=== PATIENT | female | born 1975 | race Caucasian/White ===

== ENCOUNTER 2018-05-16 14:43 | Outpatient (CLI) ==
[2015-12-18 20:51] VITALS: BMI 21.2
--- NOTE | 2018-05-17 10:07 | DI ---
Exam: Chest two-view HISTORY: Cough. Comparison: 09/10/2014. FINDINGS: Two views of the chest demonstrate hyper expanded lungs with no evidence of pneumothorax o r edema. There is a new appearance of minimal opacity in the left lung base. The heart is normal in s ize and configuration. The thoracic aorta is partially calcified. Calcified granulomata are noted. The pulmonary vasculature is not congested. The skeletal structures are intact. There are degenerati ve findings in the spine. IMPRESSION: Minimal atelectasis or pneumonia in the left lung base. Hyperexpanded lungs consistent with excellent inspiratory effort versus COPD. Atherosclerosis.
== END 2018-05-16 14:44 | disposition home or self-care (01) ==
LOC: RAD 14:43
PROVIDERS: ATTEND Physician Assistant
DX: R05 Cough (principal)

== ENCOUNTER 2020-08-29 14:32 | Observation (INO) ==
[2020-08-29] MEDS ORDERED: XANAX PO STA (14:33)
[2020-08-29 14:46] LABS: BASOPHILS % (AUTO) 0.3 % (0.0-3.0); EOSINOPHILS % (AUTO) 0.4 % (0.0-7.0); HEMATOCRIT 40.6 % (37.0-47.0); IMMATURE GRANULOCYTE % (AUTO) 0.1 % (0.0-5.0); LYMPHOCYTES # (AUTO) 1.1 K/uL (0.60-3.4); LYMPHOCYTES % (AUTO) 16.8 (10.0-50.0); MEAN CORPUSCULAR HEMOGLOBIN 32.6 pg (27.0-31.0); MEAN CORPUSCULAR HGB CONC 34.5 (31.8-35.4); MEAN CORPUSCULAR VOLUME 94.4 fl (81.0-99.0); MONOCYTES # (AUTO) 0.4 K/uL (0.4-2.0); MONOCYTES % (AUTO) 5.9 (0-10); NEUTROPHILS # (AUTO) 5.1 K/ul (2.0-6.9); NEUTROPHILS % (AUTO) 76.5 % (42.2-75.2); PLATELET COUNT 144 10^3/uL (140-440); RDW COEFFICIENT OF VARIATION 13.3 % (11.6-14.8); WHITE BLOOD COUNT 6.73 K/ul (4.6-10.2)
[2020-08-29 14:59] LABS: ALBUMIN 3.93 g/dL (3.5-5.0); ALKALINE PHOSPHATASE 109.4 U/L (38-126); BILIRUBIN,TOTAL 0.48 mg/dL (0.2-1.3); BLOOD UREA NITROGEN 3.3 mg/dL (7-17); CALCIUM 9.25 mg/dL (8.4-10.2); CARBON DIOXIDE 22.6 mmol/L (22-30.0); CHLORIDE 104.4 mmol/L (98-107); CREATINE KINASE 129.3 U/L (30-135); CREATININE 0.67 mg/dL (0.60-1.30); GLUCOSE 136.1 mg/dL (74-106); MAGNESIUM 1.76 mg/dL (1.6-2.3); SODIUM 135.6 mmol/L (134.5-145); TOTAL PROTEIN 7.04 g/dL (6.3-8.2)
[2020-08-29 15:00] LABS: BILIRUBIN,URINE 1+ (NEGATIVE); CLARITY,URINE Cloudy (CLEAR); COLOR,URINE Yellow (YELLOW); GLUCOSE, URINE (UA) Negative (NEGATIVE); KETONES,URINE 2+ (NEGATIVE); LEUKOCYTE ESTERASE ,URINE Negative (NEGATIVE); NITRITE,URINE Negative (NEGATIVE); PROTEIN,URINE 2+ (NEGATIVE); URINE, BLOOD Trace-intact (NEGATIVE); UROBILINOGEN,URINE 0.2 (0.2)
[2020-08-29] MEDS ORDERED: ATIVAN 1 ML ONE (15:00)
[2020-08-29] MEDS ORDERED: DEPACON IV STA (15:00)
[2020-08-29] MEDS ORDERED: SODIUM CHLORIDE IV STA (15:00)
[2020-08-29] MEDS ORDERED: ATIVAN IVP STA (15:00)
[2020-08-29 15:04] LABS: AMORPHOUS SEDIMENT,UR 3+ (NOT PRESENT); BACTERIA,URINE 2+ (NOT PRESENT); SQUAMOUS EPITHELIAL CELL,UR 30-50 (0-5)
[2020-08-29 15:08] LABS: POTASSIUM 2.69 mmol/L (3.5-5.1)
[2020-08-29] MEDS ORDERED: POTASSIUM CHLORIDE 10 MEQ/100 ML PREMIX 10 MEQ/100 ML BAG IV STA ×3 (15:08→15:10)
[2020-08-29 15:14] LABS: CREATINE KINASE MB 0.734 ng/ml (0.0-2.38)
--- NOTE | 2020-08-29 15:15 | CT ---
Exam: Head CT. Date: 08/29/2020. Comparison: None. HISTORY: Seizure. TECHNIQUE: Helical scan of the brain was performed. FINDINGS: The calvarium is intact. The paranasal sinuses and mastoid air cells are clear. There is mild diffuse cerebral and cerebellar volume loss with decreased attenuation in the periventr icular white matter. No abnormal intra or extra-axial fluid, mass or mass effect is present. There is no midline shift or hydrocephalus. No large vessel infarct or hemorrhage is observed. Laurent-white interface is maintained. Impression: No acute intracranial findings. There are involutional changes in the cerebral hemisphe res, greater than expected for the patient's age. All CT scans are performed using dose optimization techniques as appropriate to the performed exam an d include at least one of the following: Automated exposure control, adjustment of the mA and/or kV according t o size, and the use of iterative reconstruction technique.
[2020-08-29 15:18] LABS: TROPONIN I < 0.012 ng/ml (0.0000-0.120)
[2020-08-29 15:22] LABS: AMPHETAMINE SCREEN,URINE NEGATIVE (NEGATIVE); BARBITURATE SCREEN,URINE NEGATIVE (NEGATIVE); BENZODIAZEPINES SCREEN,URINE POSITIVE (NEGATIVE); CANNABINOID SCREEN,URINE NEGATIVE (NEGATIVE); COCAIN SCREEN,URINE NEGATIVE (NEGATIVE); METHADONE URINE SCREEN NEGATIVE (NEGATIVE); METHAMPHETAMINES SCREEN,URINE NEGATIVE (NEGATIVE); OPIATE SCREEN,URINE NEGATIVE (NEGATIVE); OXYCODONE URINE SCREEN NEGATIVE (NEGATIVE); PHENCYCLIDINE SCREEN,URINE NEGATIVE (NEGATIVE); PROPOXYPHENE URINE SCREEN NEGATIVE (NEGATIVE); TRICYCLIC ANTIDEPRESSANTS URIN NEGATIVE (NEGATIVE)
--- NOTE | 2020-08-29 17:00 | ED.PDOC ---
General ED Provider: Dr. JAMIE MOON Chief Complaint: Seizure Stated Complaint: dominique been out of my xanax for 2 days--i had a seizure at home Time Seen by Physician: 16:56 Exam Limitations: No limitations Primary Care Provider: EPIFANIO SHERMAN Nursing and Triage Documentation Reviewed and Agree: Yes Does patient meet sepsis criteria?: No System Inflammatory Response Syndrome: Not Applicable Sepsis Protocol: For patient's 13 years and over: Temp is 96.8 and below OR 101 and greater Pulse >90 BPM Resp >20/minute Acutely Altered Mental Status Are patient's symptoms suggestive of a new infection, such as: -Pneumonia -Skin, Soft Tissue -Endocarditis -UTI -Bone, Joint Infection -Implantable Device -Acute Abdominal Infection -Wound Infection -Meningitis -Blood Stream Catheter Infection -Unknown Neurological Complaint Exam Seizure Complaint/Exam Onset/Duration: secs Symptoms Are: Resolved Timing: Constant Single or Multiple Episode: single Failed to Regain Consciousness: No Severity: Self-limited Location: All extremities Character: Generalized Aggravating: Reports Drug withdrawal Alleviating: Reports Medication Related History: Reports Similar episode Carotid Bruit Present: No Cephalohematoma Present: No Tongue Bitten: Yes Neck Pain Present: No Glascow Coma Scale (see protocol): 15 Nystagmus Present: No Gag Reflex Present: Yes Speech: Present Normal Findings Aphasia: Present None Meningeal Signs Positive: No Focal Weakness: Present None Focal Sensory Loss: Reports None Gait: Normal [id number]: Normal Findings Pronator Drift: Present None Romberg Test Positive: No Babinski Sign: Negative Right and Negative Left Heel to Toe Normal: Yes Signs of Injury: Present Normal findings Differential Diagnoses: Seizure Disorder Review of Systems Review Of Systems Constitutional: Reports No symptoms Eyes: Reports No symptoms Ears, Nose, Mouth, Throat: Reports No symptoms Respiratory: Reports No symptoms Cardiac: Reports No symptoms GI: Reports No symptoms : Reports No symptoms Musculoskeletal: Reports No symptoms Skin: Reports No symptoms Neurological: Reports No symptoms Endocrine: Reports No symptoms Hematologic/Lymphatic: Reports No symptoms All Other Systems: Reviewed and Negative [facility] Social History Smoking and tobacco status: Current every day smoker Substance use type: marijuana Female Reproductive History Menstrual Hx Hysterectomy: Yes Hx Tubal Ligation: No Physical Exam Physical Exam Appearance: Reports Well-appearing Ill-appearing: None Pain Distress: None Eyes: Reports PETR, EOMI and Conjunctiva clear ENT: Reports Ears normal Neck: Supple Respiratory: Reports Airway patent, Breath sounds clear, Breath sounds equal and Breath sounds diminished Cardiovascular: Reports RRR, Pulses normal, No rub and No murmur GI/: Reports Soft, Nontender, No masses and Bowel sounds normal Musculoskeletal: Reports Normal strength, ROM intact, No edema and No calf tenderness Skin: Reports Warm, Dry and Normal color Neurological: Reports Sensation intact, Motor intact, Reflexes intact, Cranial nerves intact, Alert and Oriented Psychiatric: Reports Affect appropriate and Mood appropriate Interpretation Radiology Interpretation Radiology Interpretation By: Radiologist Radiology Results: Negative Exam Interpreted: CT Scan EKG Interpretation Time of EKG #1: 15:13 Rate: Normal Rhythm: Sinus Ectopy: None [place]: NL ST Segment: Normal Interpretation: nsr Re-Evaluation Re-Evaluation Time of Re-Evaluation: 18:22 Status: Improved Vital Signs Stable: Yes Pain Level: no pain Appearance: NAD Lungs: Clear Skin: Warm and Dry Neuro: Alert and Oriented X3 CV: RRR Critical Care Note Critical Care Note Total Critical Care Time (mins): 30 Course Course Hematology/Chemistry: 08/29/20 14:45 08/29/20 14:45 Orders, Labs, Meds: Lab Review 08/29/20 08/29/20 08/29/20 14:45 14:45 14:45 WBC 6.73 RBC 4.30 Hgb 14.0 Hct 40.6 MCV 94.4 MCH 32.6 H MCHC 34.5 RDW Coeff of [place]esta 13.3 Plt Count 144 Immature Gran % (Auto) 0.1 Neut % (Auto) 76.5 H Lymph % (Auto) 16.8 Perkins % (Auto) 5.9 Eos % (Auto) 0.4 Baso % (Auto) 0.3 Neut # (Auto) 5.1 Lymph # (Auto) 1.1 Perkins # (Auto) 0.4 Eos # (Auto) 0.0 Baso # (Auto) 0.0 Immature Gran # (Auto) 0.0 Sodium 135.6 Potassium 2.69 L* Chloride 104.4 Carbon Dioxide 22.6 Anion Gap 11.29 BUN 3.3 L Creatinine 0.67 Estimated GFR (MDRD) 94.00 BUN/Creatinine Ratio 4.92 Glucose 136.1 H Calcium 9.25 Magnesium 1.76 Total Bilirubin 0.48 AST 40.0 H ALT 22.0 Alkaline Phosphatase 109.4 Total Creatine Kinase 129.3 CK-MB (CK-2) 0.734 CK-MB (CK-2) % 0.5600 Troponin I < 0.012 Total Protein 7.04 Albumin 3.93 Globulin 3.11 Albumin/Globulin Ratio 1.26 Urine Color Urine Clarity Urine pH Ur Specific Webb Urine Protein Urine Glucose (UA) Urine Ketones Urine Blood Urine Nitrite Urine Bilirubin Urine Urobilinogen Ur Leukocyte Esterase Urine Microscopic RBC Urine Microscopic WBC Ur Squamous Epith Cells Amorphous Sediment Urine Bacteria Urine Opiates Screen Ur Oxycodone Screen Urine Methadone Screen Ur Propoxyphene Screen Ur Barbiturates Screen Valproic Acid 31.24 L U Tricyclic Antidepress Ur Phencyclidine Scrn Ur Amphetamine Screen U Methamphetamines Scrn U Benzodiazepines Scrn Urine Cocaine Screen U Cannabinoids Screen 08/29/20 08/29/20 14:57 14:58 WBC RBC Hgb Hct MCV MCH MCHC RDW Coeff of [place] Plt Count Immature Gran % (Auto) Neut % (Auto) Lymph % (Auto) Perkins % (Auto) Eos % (Auto) Baso % (Auto) Neut # (Auto) Lymph # (Auto) Perkins # (Auto) Eos # (Auto) Baso # (Auto) Immature Gran # (Auto) Sodium Potassium Chloride Carbon Dioxide Anion Gap BUN Creatinine Estimated GFR (MDRD) BUN/Creatinine Ratio Glucose Calcium Magnesium Total Bilirubin AST ALT Alkaline Phosphatase Total Creatine Kinase CK-MB (CK-2) CK-MB (CK-2) % Troponin I Total Protein Albumin Globulin Albumin/Globulin Ratio Urine Color Yellow Urine Clarity Cloudy Urine pH 6.0 Ur Specific Webb 1.025 Urine Protein 2+ H Urine Glucose (UA) Negative Urine Ketones 2+ H Urine Blood Trace-intact H Urine Nitrite Negative Urine Bilirubin 1+ H Urine Urobilinogen 0.2 Ur Leukocyte Esterase Negative Urine Microscopic RBC 2-5 Urine Microscopic WBC 2-5 Ur Squamous Epith Cells 30-50 Amorphous Sediment 3+ Urine Bacteria 2+ Urine Opiates Screen Negative Ur Oxycodone Screen Negative Urine Methadone Screen Negative Ur Propoxyphene Screen Negative Ur Barbiturates Screen Negative Valproic Acid U Tricyclic Antidepress Negative Ur Phencyclidine Scrn Negative Ur Amphetamine Screen Negative U Methamphetamines Scrn Negative U Benzodiazepines Scrn Positive H Urine Cocaine Screen Negative U Cannabinoids Screen Negative Orders Category Date Time Status EKG-(ED ONLY) Stat CARDIO 08/29/20 14:34 Completed ED SALES TEAM LEADER APPLIED .ONCE EMERGENCY 08/29/20 14:34 ED IV/MEDIPORT/POWERPORT .ONCE EMERGENCY 08/29/20 14:34 CBC W/ AUTO DIFF Stat LAB 08/29/20 14:45 Completed COMPREHENSIVE METABOLIC PANEL Stat LAB 08/29/20 14:45 Completed CREATINE KINASE Stat LAB 08/29/20 14:45 Completed DRUG SCREEN, URINE, RAPID Stat LAB 08/29/20 14:58 Completed MAGNESIUM Stat LAB 08/29/20 14:45 Completed POTASSIUM Timed LAB 08/29/20 18:15 Ordered TROPONIN I Stat LAB 08/29/20 14:45 Completed URINALYSIS C & S IF INDICATED Stat LAB 08/29/20 14:57 Completed URINE CULTURE Stat LAB 08/29/20 14:57 Received VALPORIC ACID (DEPAKENE) Stat LAB 08/29/20 14:45 Completed 0.9 % Sodium Chloride [Saline Flush] MEDS 08/29/20 14:33 Active 1 syr IVF PRN PRN Alprazolam [Xanax] MEDS 08/29/20 14:33 Discontinued 1 mg PO ONCE STA Lorazepam [Ativan] MEDS 08/29/20 15:00 Discontinued 2 mg IVP ONCE STA Lorazepam [Ativan] 1 ml MEDS 08/29/20 15:00 Discontinued .ROUTE .STK-MED Potassium Chloride [Potassium Chloride 10 Meq/100 ml MEDS 08/29/20 15:08 Discontinued Premix] 10 meq in 100 ml IV ONCE Potassium Chloride [Potassium Chloride 10 Meq/100 ml MEDS 08/29/20 15:09 Discontinued Premix] 10 meq in 100 ml IV ONCE Potassium Chloride [Potassium Chloride 10 Meq/100 ml MEDS 08/29/20 15:10 Discontinued Premix] 10 meq in 100 ml IV ONCE Valproate Sodium [Depacon] 500 mg MEDS 08/29/20 15:00 Discontinued 0.9 % Sodium Chloride [Sodium Chloride] [address] HEAD W/O CONTRAST Stat RADS 08/29/20 14:33 Completed Medications Generic Name Dose Route Start Last Admin Trade Name Freq PRN Reason Stop Dose Admin Sodium Chloride 1 syr 08/29/20 14:33 08/29/20 14:48 0.9% Sodium Chloride 10 Ml Disp.Syrin IVF 1 syr PRN PRN Administration To flush IV Discontinued Medications Generic Name Dose Route Start Last Admin Trade Name Marizol PRN Reason Stop Dose Admin Alprazolam 1 mg 08/29/20 14:33 08/29/20 14:48 Alprazolam 0.5 Mg Tablet PO 08/29/20 14:34 1 mg ONCE STA Administration Valproic Acid 500 mg/ Sodium 55 mls @ 50 mls/hr 08/29/20 15:00 08/29/20 15:13 Chloride IV 08/29/20 16:05 50 mls/hr ONCE STA Administration Potassium Chloride 10 meq in 100 mls @ 100 mls/hr 08/29/20 15:08 08/29/20 15:20 Potassium Chloride 10 Meq/100 Ml Premix IV 08/29/20 16:07 100 mls/hr ONCE STA Administration Potassium Chloride 10 meq in 100 mls @ 100 mls/hr 08/29/20 15:09 08/29/20 16:04 Potassium Chloride 10 Meq/100 Ml Premix IV 08/29/20 16:08 100 mls/hr ONCE STA Administration Potassium Chloride 10 meq in 100 mls @ 100 mls/hr 08/29/20 15:10 08/29/20 16:58 Potassium Chloride 10 Meq/100 Ml Premix IV 08/29/20 16:09 100 mls/hr ONCE STA Administration Lorazepam 2 mg 08/29/20 15:00 08/29/20 15:05 Lorazepam Inj 2 Mg/Ml Vial IVP 08/29/20 15:01 2 mg ONCE STA Administration Vital Signs: Temp Pulse Resp BP Pulse Ox 08/29/20 17:52 68 16 140/99 H 98 08/29/20 14:32 97.2 F L 62 18 172/96 H 98 Discharge Plan Discharge Patient Disposition: HOME SELF-CARE Discharge Problem: Seizure, Panic attack, Hypokalemia Instructions: Panic Attack (ED) Prescriptions: No Action tramadol 50 MG tablet 50 mg PO BID RF: 0 metoprolol succinate 25 MG tablet extended release 24 hr 25 mg PO BID RF: 0 chlordiazepoxide HCl 25 MG capsule 25 mg PO TID RF: 0 hydrocodone-acetaminophen 1 EACH tablet 1 ea PO Q4-6H PRN (Reason: PAIN) RF: 0 buspirone 15 MG tablet 15 mg PO BID RF: 0 sumatriptan succinate 25 MG tablet 25 mg PO ONCE RF: 0 divalproex 250 mg Tablet,Delayed Release (Dr/Ec) 250 mg PO TID RF: 0 alprazolam [Xanax] 1 mg Tablet 1 mg PO BID PRN (Reason: Anxiety) RF: 0 ranitidine HCl 150 mg Tablet 150 mg PO BID RF: 0 folic acid 1 mg Tablet 1 mg PO DAILY RF: 0 zolpidem [Ambien] 10 mg Tablet 10 mg PO BEDTIME PRN (Reason: Insomnia) RF: 0 albuterol sulfate 90 mcg/actuation Hfa Aerosol Inhaler 2 puff INHALATION Q4-6H PRN (Reason: Wheezing) RF: 0 fluticasone propionate [Flonase Allergy Relief] 50 mcg/actuation [place],Suspension 1 spray INTRANASAL DAILY RF: 0 buspirone 15 mg Tablet 15 mg PO TID RF: 0 escitalopram oxalate [Lexapro] 10 mg Tablet 15 mg PO DAILY RF: 0 Activity Restrictions/Additional Instructions: xanax 1mg tid #9---foll0w up with pcsp---have your pcp repeat potasssium level. ED Provider: JAMIE MOON Condition: Good Physician Progress Note: []
[2020-08-29] MEDS ORDERED: K-DUR PO STA (18:45)
[2020-08-29] MEDS ORDERED: NORCO 7.5-325 PO PRN (18:58)
[2020-08-29] MEDS ORDERED: VENTOLIN HFA (PER PUFF-WITH SPACER) IH PRN (18:58)
[2020-08-29] MEDS ORDERED: SODIUM CHLORIDE 0.9%-KCL 20 MEQ 1,000 ML IV SCH (19:00)
[2020-08-29] MEDS: BUSPAR PO SCH (21:23)
[2020-08-29] MEDS: DEPAKOTE PO SCH (21:24)
[2020-08-29] MEDS: TOPROL XL PO SCH (21:24)
[2020-08-29] MEDS: XANAX PO SCH (21:24)
[2020-08-29 21:37] VITALS: BMI 25.6
[2020-08-30 05:19] LABS: BASOPHILS % (AUTO) 0.5 % (0.0-3.0); EOSINOPHILS # (AUTO) 0.1 K/ul (0.0-0.7); EOSINOPHILS % (AUTO) 1.8 % (0.0-7.0); HEMATOCRIT 39.3 % (37.0-47.0); HEMOGLOBIN 13.4 g/dl (12.0-16.0); IMMATURE GRANULOCYTE % (AUTO) 0.3 % (0.0-5.0); LYMPHOCYTES # (AUTO) 2.3 K/uL (0.60-3.4); LYMPHOCYTES % (AUTO) 29.4 (10.0-50.0); MEAN CORPUSCULAR HEMOGLOBIN 32.8 pg (27.0-31.0); MEAN CORPUSCULAR HGB CONC 34.1 (31.8-35.4); MEAN CORPUSCULAR VOLUME 96.3 fl (81.0-99.0); MONOCYTES # (AUTO) 0.6 K/uL (0.4-2.0); MONOCYTES % (AUTO) 7.8 (0-10); NEUTROPHILS # (AUTO) 4.8 K/ul (2.0-6.9); NEUTROPHILS % (AUTO) 60.2 % (42.2-75.2); PLATELET COUNT 147 10^3/uL (140-440); RDW COEFFICIENT OF VARIATION 13.5 % (11.6-14.8); RED BLOOD COUNT 4.08 10^6/ul (4.20-5.40); WHITE BLOOD COUNT 7.92 K/ul (4.6-10.2)
[2020-08-30 05:47] LABS: ALANINE AMINOTRANSFERASE 20.2 U/L (0-35); ALBUMIN 3.75 g/dL (3.5-5.0); ALKALINE PHOSPHATASE 94.8 U/L (38-126); ASPARTATE AMINO TRANSFERASE 33.5 U/L (14-36); BILIRUBIN,TOTAL 0.49 mg/dL (0.2-1.3); BLOOD UREA NITROGEN 2.6 mg/dL (7-17); CALCIUM 9.09 mg/dL (8.4-10.2); CHLORIDE 110.2 mmol/L (98-107); CREATININE 0.7 mg/dL (0.60-1.30); POTASSIUM 3.19 mmol/L (3.5-5.1); SODIUM 141.7 mmol/L (134.5-145); TOTAL PROTEIN 6.71 g/dL (6.3-8.2)
--- NOTE | 2020-08-30 07:39 | PCM.PROG ---
S: Patient resting comfortably. She was admitted yesterday for seizure activity secondary to having run out of her Xanax/Hypokalemia. It appears she has been given 40mEq PO and 40mEq IV over the last 12 hours, and her Potassium has increased from 3.3 on admission to 3.19. Her Mag was at the low end of the normal range on admission, and was not included in the AM labs. She has had no further seizure activity.
[2020-08-30] MEDS: TOPROL XL PO SCH ×2 (08:56→21:14)
[2020-08-30] MEDS: DEPAKOTE PO SCH ×3 (08:56→21:14)
[2020-08-30] MEDS: BUSPAR PO SCH ×2 (08:56→21:57)
[2020-08-30] MEDS: XANAX PO SCH ×3 (08:56→21:14)
[2020-08-30] MEDS: LEXAPRO PO SCH (08:56)
[2020-08-30] MEDS: FOLIC ACID PO SCH (08:57)
--- NOTE | 2020-08-30 09:37 | PCM.PROG ---
S: Patient resting comfortably. She was admitted yesterday for seizure activity secondary to having run out of her Xanax/Hypokalemia. It appears she has been given 40mEq PO and 40mEq IV over the last 12 hours, and her Potassium has increased from 3.3 on admission to 4.19. Her Mg was at the low end of the normal range on admission, and was not included in the AM labs. She has had no further seizure activity. O: T - 97.7 P - 60 R - 18 BP - 160/99 O2 - 97%RA K+ went from 2.96 to 3.19 BUN went from 3.3 to 2.6 NaCl went from 135.6/104.4 to 141.7/110.2 A: Patient's Potassium is still well below normal limits. Since she has been getting NaCl with KCl, her Na is WNL, but her Cl has climbed above the normal limits. P: Will change NS with KCl to LR with KCl. Will increase the IV KCl and add serial PO KCl. Labs in AM. Would anticipate d/c in AM.
[2020-08-30] MEDS ORDERED: MAG-OX PO STA (12:27)
[2020-08-30] MEDS ORDERED: LACTATED RINGERS 1,000 ML IV SCH (12:30)
[2020-08-30] MEDS ORDERED: POTASSIUM CHLORIDE 20 MEQ/100 ML PREMIX 20 MEQ/100 ML BAG IV STA (12:36)
[2020-08-30] MEDS: K-DUR PO SCH ×2 (15:16→18:50)
[2020-08-30] MEDS: LACTATED RINGERS IV SCH (15:19)
[2020-08-30] MEDS: ADDITIVE ONLY IV SCH (15:19)
[2020-08-30] MEDS: POTASSIUM CHLORIDE IV SCH (15:19)
[2020-08-30] MEDS ORDERED: POTASSIUM CHLORIDE 20 MEQ/100 ML PREMIX 20 MEQ/100 ML BAG IV ONE (18:30)
[2020-08-30] MEDS ORDERED: AMBIEN PO PRN (20:58)
[2020-08-30] MEDS ORDERED: LURASIDONE 120 MG PO SCH ×2 (21:00→22:15)
[2020-08-30] MEDS ORDERED: LURASIDONE 120 MG PO ONE (22:15)
[2020-08-31] MEDS: K-DUR PO SCH ×2 (00:08→05:31)
[2020-08-31] MEDS ORDERED: CATAPRES PO STA (00:27)
[2020-08-31] MEDS ORDERED: POTASSIUM CHLORIDE 20 MEQ/100 ML PREMIX 20 MEQ/100 ML BAG IV ONE (00:30)
[2020-08-31] MEDS ORDERED: POTASSIUM CHLORIDE 40 MEQ VIAL-ADDITIVE ONLY IV ONE (05:20)
[2020-08-31] MEDS: POTASSIUM CHLORIDE IV SCH (05:23)
[2020-08-31] MEDS: LACTATED RINGERS IV SCH (05:23)
[2020-08-31] MEDS: ADDITIVE ONLY IV SCH (05:23)
[2020-08-31 05:28] LABS: BASOPHILS % (AUTO) 0.5 % (0.0-3.0); EOSINOPHILS # (AUTO) 0.1 K/ul (0.0-0.7); EOSINOPHILS % (AUTO) 1.9 % (0.0-7.0); HEMATOCRIT 36.7 % (37.0-47.0); HEMOGLOBIN 12.2 g/dl (12.0-16.0); IMMATURE GRANULOCYTE % (AUTO) 0.2 % (0.0-5.0); LYMPHOCYTES # (AUTO) 2.5 K/uL (0.60-3.4); LYMPHOCYTES % (AUTO) 43.6 (10.0-50.0); MEAN CORPUSCULAR HEMOGLOBIN 32.7 pg (27.0-31.0); MEAN CORPUSCULAR HGB CONC 33.2 (31.8-35.4); MEAN CORPUSCULAR VOLUME 98.4 fl (81.0-99.0); MONOCYTES # (AUTO) 0.6 K/uL (0.4-2.0); MONOCYTES % (AUTO) 9.6 (0-10); NEUTROPHILS # (AUTO) 2.6 K/ul (2.0-6.9); NEUTROPHILS % (AUTO) 44.2 % (42.2-75.2); PLATELET COUNT 135 10^3/uL (140-440); RDW COEFFICIENT OF VARIATION 13.5 % (11.6-14.8); RED BLOOD COUNT 3.73 10^6/ul (4.20-5.40); WHITE BLOOD COUNT 5.82 K/ul (4.6-10.2)
[2020-08-31 05:38] LABS: ALANINE AMINOTRANSFERASE 23.5 U/L (0-35); ALKALINE PHOSPHATASE 91.9 U/L (38-126); BILIRUBIN,TOTAL 0.37 mg/dL (0.2-1.3); CALCIUM 8.79 mg/dL (8.4-10.2); CARBON DIOXIDE 24.9 mmol/L (22-30.0); CHLORIDE 110.6 mmol/L (98-107); CREATININE 0.64 mg/dL (0.60-1.30); GLUCOSE 99.7 mg/dL (74-106); MAGNESIUM 2.18 mg/dL (1.6-2.3); POTASSIUM 4.13 mmol/L (3.5-5.1); SODIUM 139.1 mmol/L (134.5-145)
[2020-08-31 05:48] LABS: BLOOD UREA NITROGEN < 2.0 mg/dL (7-17)
[2020-08-31 06:00] VITALS: BP 165/91; TEMP 97.9
[2020-08-31] MEDS: DEPAKOTE PO SCH (08:40)
[2020-08-31] MEDS: LEXAPRO PO SCH (08:41)
[2020-08-31] MEDS: TOPROL XL PO SCH (08:41)
[2020-08-31] MEDS: FOLIC ACID PO SCH (08:41)
[2020-08-31] MEDS: XANAX PO SCH (08:41)
--- NOTE | 2020-08-31 09:50 | PCM.DC ---
Final Diagnosis: Seizure Disorder, Mood Disorder Bipolar Depression Hypokalemia Anxiety Seizure disorder Entering statement. Pt brought to ER prior to admission after awakening at home, suspected she had a seizure episode.Evaluated with diagnostic studies in ER and admitted. Tx for low Potasium level with supplemental K + doses. After 1st day K+ level still low therefore was given additional Potassium plus Magnesium therapy. This morning patient feeling better, lab rechecked with K+ Mg Levels normal . Patients meds, labs reviewed. Discharged to home; Prescriptions sent and discharge instructions given. Follow up PCP next week (1) Hypokalemia: Status: Acute Code(s): E87.6 - Hypokalemia SNOMED Code(s): 75656409 (2) Seizure: Status: Acute Code(s): R56.9 - Unspecified convulsions SNOMED Code(s): 78155127 Medications at Discharge: Ambulatory Orders Medication Instructions Recorded alprazolam [Xanax] 1 mg PO Q8HR PRN 10/05/19 divalproex 250 mg PO TID 10/05/19 escitalopram oxalate [Lexapro] 20 mg PO DAILY 10/05/19 zolpidem [Ambien] 10 mg PO BEDTIME PRN 10/05/19 Latuda 120 mg PO DAILY 08/29/20 cetirizine 10 mg PO DAILY 08/29/20 ibuprofen 800 mg PO TID 08/29/20 oxybutynin chloride 5 mg PO BID 08/29/20 potassium chloride 20 meq PO DAILY #10 tab 08/31/20
[2020-08-31] MEDS ORDERED: LURASIDONE 120 MG PO SCH (21:00)
== END 2020-08-31 12:30 | disposition home or self-care (01) ==
LOC: MEDSURG A 14:32 → ED 14:32 → MEDSURG A 21:20
PROVIDERS: ADMIT Internal Medicine Geriatric Medicine; ATTEND Internal Medicine Geriatric Medicine
DX: F41.0 Panic disorder [episodic paroxysmal anxiety]; F41.9 Anxiety disorder, unspecified; F32.9 Major depressive disorder, single episode, unspecified; Z20.822 Contact with and (suspected) exposure to COVID-19